=== PATIENT | male | born 1985 | race American Indian/Alaskan Native ===

== ENCOUNTER 2020-05-18 15:00 | Emergency (ER) | payer SELFPAY ==
[2020-05-18 15:41] VITALS: BP 134/83
--- NOTE | 2020-05-18 15:45 | Emergency Department Report ---
ED General Adult HPI - General Chief complaint: Dental/Oral Stated complaint: JAW SWOLLEN Time Seen by Provider: 05/18/20 15:40 Source: patient Mode of arrival: Ambulatory Limitations: No Limitations - History of Present Illness Initial comments: 34-year-old -Al[place] male patient presents with complaints of right lower dental pain x3 days. Patient states history of a dental infection in the same area years ago. He rates his current pain as a 10/10 in severity and states Advil is not helping. He denies any trouble opening his jaw, dysphagia, fever/chills/sweats, or redness to the face. He is not currently following with a dental specialist. - Related Data Previous Rx's Medication Instructions Recorded Last Taken Type Acetaminophen/Codeine [Tylenol 1 tab PO Q6H PRN #12 tab 05/18/20 Unknown Rx /Codeine # 3 tab] Clindamycin [Clindamycin CAP] 300 mg PO Q6H 10 Days #40 cap 05/18/20 Unknown Rx Naproxen 500 mg PO BID PRN #14 tablet 05/18/20 Unknown Rx Allergies Allergy/AdvReac Type Severity Reaction Status Date / Time No Known Allergies Allergy Unverified 05/18/20 15:38 ED Review of Systems ROS: Stated complaint: JAW SWOLLEN Other details as noted in HPI Constitutional: denies: chills, fever, malaise ENT: dental pain. denies: ear pain, throat pain Respiratory: denies: cough, shortness of breath Cardiovascular: denies: chest pain Skin: denies: rash, lesions, change in color ED Past Medical Hx - Past Medical History Previous Medical History?: No - Surgical History Past Surgical History?: No - Medications Home Medications: Home Medications Medication Instructions Recorded Confirmed Last Taken Type Acetaminophen/Codeine [Tylenol 1 tab PO Q6H PRN #12 tab 05/18/20 Unknown Rx /Codeine # 3 tab] Clindamycin [Clindamycin CAP] 300 mg PO Q6H 10 Days #40 cap 05/18/20 Unknown Rx Naproxen 500 mg PO BID PRN #14 tablet 05/18/20 Unknown Rx ED Physical Exam - General Limitations: No Limitations General appearance: alert, in no apparent distress - Head Head exam: Present: atraumatic, normocephalic - Eye Eye exam: Present: normal appearance. Absent: scleral icterus - Expanded ENT Exam Expanded Teeth exam: Present: dental caries, dental tenderness # 1 - Dental Tenderness (With deep dental carry and surrounding erythema; moderate overlying facial swelling without erythema noted) Throat exam: Negative: normal inspection, tonsillar erythema - Neck Neck exam: Present: full ROM. Absent: lymphadenopathy - Cardiovascular Cardiovascular Exam: Present: regular rate, normal rhythm - Neurological Exam Neurological exam: Present: alert, oriented X3, normal gait - Psychiatric Psychiatric exam: Present: normal affect, normal mood - Skin Skin exam: Present: warm, dry, intact, normal color. Absent: rash, cyanosis, diaphoretic ED Course Vital Signs 05/18/20 05/18/20 05/18/20 15:40 17:00 17:34 Temperature 98.0 F Pulse Rate 73 Respiratory 18 18 18 Rate Blood Pressure 134/83 O2 Sat by Pulse 93 Oximetry ED Medical Decision Making - Medical Decision Making 34-year-old -Al[place] male patient presents with complaints of right lower dental pain x3 days. Patient states history of a dental infection in the same area years ago. He rates his current pain as a 10/10 in severity and states Advil is not helping. He denies any trouble opening his jaw, dysphagia, fever/chills/sweats, or redness to the face. He is not currently following with a dental specialist. Right lower dental swelling and tenderness noted on exam with overlying facial swelling, no erythema is noted. Will treat for dental infection/abscess with clindamycin and pain medication. Patient provided with dental specialist list a nd informed to follow-up within 24 to 48 hours. His vitals are normal he is well-appearing and stable for discharge home. Strict return precautions were discussed in detail with patient who verbalizes understanding. Critical care attestation.: If time is entered above; I have spent that time in minutes in the direct care of this critically ill patient, excluding procedure time. ED Disposition Clinical Impression: Dental abscess Disposition: - TO HOME OR SELFCARE Is pt being admited?: No Condition: Stable Instructions: Dental Abscess Additional Instructions: Please follow-up with a dental specialist from the list provided within 24 to 48 hours. Seek immediate emergency treatment if you you develop new or worsening symptoms Prescriptions: Clindamycin [Clindamycin CAP] 300 mg PO Q6H 10 Days #40 cap Naproxen 500 mg PO BID PRN #14 tablet PRN Reason: Pain, Moderate (4-6) Acetaminophen/Codeine [Tylenol /Codeine # 3 tab] 1 tab PO Q6H PRN #12 tab PRN Reason: Pain , Severe (7-10) Referrals: PRIMARY CARE,MD [Primary Care Provider] - 3-5 Days
[2020-05-18] MEDS ORDERED: oxyCODONE /ACETAMINOPHEN 5-325MG TAB PO ONE (16:35)
== END 2020-05-18 17:37 | disposition home or self-care (01) ==
LOC: ED 15:00
DX: K04.7 Periapical abscess without sinus (principal)
CPT/HCPCS: 99282